=== PATIENT | male | born 2000 | race Caucasian/White ===

== ENCOUNTER 2020-12-05 13:31 | Emergency (ER) | payer SELFPAY ==
[2020-12-05] MEDS ORDERED: Ondansetron PF 4 MG/2 ML Vial ONE (15:17)
[2020-12-05] MEDS ORDERED: Mag-Al Plus 1200 MG/1200 MG/120 MG/30 ML UDCUP ONE (15:17)
[2020-12-05] MEDS ORDERED: Lidocaine Viscous Sol 2% 15 ml UD Cup ONE (15:17)
[2020-12-05 15:45] LABS: #Monocytes 0.7 10x3/uL (0.0-1.1); #Neutrophils 10.6 10x3/uL (1.5-8.4); %Basophils 0.3 % (0.0-2.0); %Eosinophils 0.2 % (0.0-6.0); %Lymphocytes 9.7 % (18.0-47.0); %Monocytes 5.7 % (0.0-10.0); %Neutrophils 83.8 % (40.0-75.0); Hemoglobin 16.4 g/dL (13.5-17.5); Mean Corpuscular HGB CONC 34.4 g/dL (32.0-36.0); Mean Corpuscular Hemoglobin 30.4 pg (27.0-33.0); Mean Corpuscular Volume 88.3 fl (81.2-95.1); Mean Platelet Volume 9.5 fl (7.4-10.4); Platelet Count 259 10x3/uL (150-450); RBC Distribution Width 12.4 % (11.5-14.5); White Blood Cell (WBC) Count 12.6 10x3/uL (3.5-10.5)
[2020-12-05 16:01] LABS: ALT (SGPT) 24 U/L (8-55); AST (SGOT) 28 U/L (5-34); Albumin 4.8 g/dL (3.5-5.0); Alkaline Phosphatase 99 U/L (40-110); Anion Gap 14 mmol/L (10-20); BUN (Urea Nitrogen) 8 mg/dL (8.9-20.6); Bilirubin, Total 1.1 mg/dL (0.2-1.2); CK (CPK) 204 U/L (30-200); Calc. Creatinine Clearance 0 mL/min (70-130); Calcium 10.7 mg/dL (7.8-10.44); Carbon Dioxide 28 mmol/L (22-29); Chloride 100 mmol/L (98-107); Globulin 3.3 g/dL (2.4-3.5); Glucose 110 mg/dL (70-105); Lipase 23 U/L (8-78); Potassium 3.7 mmol/L (3.5-5.1); Protein, Total 8.1 g/dL (6.0-8.3)
[2020-12-05 16:11] LABS: Sodium 138 mmol/L (136-145)
== END 2020-12-05 17:27 | disposition home or self-care (01) ==
LOC: CSHERS 13:31
DX: R11.2 Nausea with vomiting, unspecified (principal)
CPT/HCPCS: 80053; 82550; 83690; 85025; 96374; J2405

== ENCOUNTER 2021-11-13 13:58 | Emergency (ER) | payer SELFPAY ==
[2021-11-13] MEDS ORDERED: Cyclobenzaprine 10 MG TAB ONE (16:10)
[2021-11-13] MEDS ORDERED: Ibuprofen 200 MG TAB ONE (16:11)
== END 2021-11-13 16:42 | disposition home or self-care (01) ==
LOC: CSHERS 13:58
DX: S20.212A Contusion of left front wall of thorax, initial encounter (principal); Y04.0XXA Assault by unarmed brawl or fight, initial encounter

== ENCOUNTER 2022-02-17 20:06 | Emergency (ER) | payer SELFPAY ==
[2022-02-17 21:24] LABS: SARS-CoV-2 NAA Rapid Test Not Detected (NotDetected)
[2022-02-17] MEDS ORDERED: Acetaminophen 500 MG TAB ONE (21:50)
[2022-02-17] MEDS ORDERED: Famotidine 20 MG TAB ONE (22:02)
== END 2022-02-17 22:14 | disposition home or self-care (01) ==
LOC: CSHERS 20:06
DX: J11.1 Influenza due to unidentified influenza virus with other respiratory manifestations (principal); B34.9 Viral infection, unspecified; Z20.822 Contact with and (suspected) exposure to COVID-19
CPT/HCPCS: 99284